=== PATIENT | female | born 1940 | race Caucasian/White ===

== ENCOUNTER → 2016-08-03 | Outpatient (CLI) | payer OTHER, MEDICARE | LOC: FIMAGING 08:51 | PROVIDERS: ATTEND Physician Assistant | DX: Z12.39 Encounter for other screening for malignant neoplasm of breast (principal); R92.0 Mammographic microcalcification found on diagnostic imaging of breast | CPT/HCPCS: G0206 ==

== ENCOUNTER 2016-11-01 09:48 | Emergency (ER) | payer OTHER, MEDICARE ==
[2016-11-01 10:03] VITALS: TEMP 98.2
--- NOTE | 2016-11-01 10:32 | EDPHY ---
H & P Time Seen by Provider: 11/01/16 10:16 HPI/ROS: HPI: Ms. Zhou is a 76 yrs, female who presents with Chief Complaint: Left lower leg swelling Location: Left anterior lower leg Quality: Swelling Duration: 5 and half weeks Signs and Symptoms: Positive calf pain, no shortness of breath, no chest pain, no redness, no warmth, no bleeding, no radiation Timing: Intermittent Severity: Moderate Context: Complex medical history with a history of right lower leg DVT years ago from a complication from angiogram procedure. No longer taking anticoagulation. Does take full-strength aspirin daily. Patient relates approximately 5-1/2 weeks ago was [place] in her luggage tripped and hit her left lower adams. Experienced a skin tear and large hematoma. She was seen at the local urgent care office with the tib-fib and foot x-ray that was negative for acute process per patient. Patient notes that the skin tear is healed but the large bump remains and there is seems to be swelling that has worsened over the last week. Patient did travel to [place] last week. Modifying Factors: Pain medication she has at home with moderate relief Comment: ROS: Eyes: No blurred vision Respiratory: No shortness of breath, no cough Cardiovascular: No chest pain Gastrointestinal: No nausea, no vomiting no diarrhea Genitourinary: No dysuria Extremities: No myalgias Neurologic: No weakness, no numbness Skin: No rashes Hematologic: No bruising, no bleeding MEDICAL/SURGICAL HISTORY: Pyelonephritis, chronic kidney disease, hyponatremia, chronic pain, dyslipidemia , hypertension, paroxysmal atrial fibrillation, irritable bowel syndrome. Social History: Retired. Smoking Status: Never smoked Physical Exam: CONSTITUTIONAL: Pleasant elderly white female, platelet talkative, awake and alert, no obvious distress HEENT: Atraumatic and normocephalic, PERRL, EOMI. Tympanic membranes clear. Oropharynx clear, no exudate and moist pink mucosa. Airway patent. No lymphadenopathy. No meningismus. Cardiovascular: Normal S1/S2, regular rate, regular rhythm, without murmur rub or gallop. PULMONARY/CHEST: Symmetrical and nontender. Clear to auscultation bilaterally Good air movement. No accessory muscle usage. ABDOMEN: Soft, nondistended, nontender, no rebound, no guarding, no peritoneal signs, no masses or organomegaly. No CVAT. EXTREMITIES: 2/2 pulses, no deformities, no clubbing, no cyanosis or edema. Left lower leg; anterior portion mid tib-fib shows 2-3 inch hyperpigmented hematoma. Mild swelling with calf tenderness on the left. Positive Homans sign. Left ankle has full range of motion. Left toes have lightheaded sensation intact. NEUROLOGICAL: no focal neuro deficits. GCS 15. SKIN: Warm and dry, see above. no rash. Good capillary refill. Constitutional: Initial Vital Signs Temperature (C) 36.8 C 11/01/16 09:59 Heart Rate 86 11/01/16 09:59 Respiratory Rate 18 11/01/16 09:59 Blood Pressure 186/105 H 11/01/16 09:59 O2 Sat (%) 96 11/01/16 09:59 O2 Delivery Mode Room Air Allergies/Adverse Reactions: meperidine HCl [From Demerol] Allergy (Severe, Verified 09/04/15 05:52) NAUSEA morphine Allergy (Severe, Verified 09/04/15 05:52) Hypotension prednisone [Prednisone] Allergy (Severe, Verified 09/04/15 05:52) Rash rofecoxib [From Vioxx] Allergy (Severe, Verified 09/04/15 05:52) SWELLING aloe vera Allergy (Verified 09/04/15 05:52) NSAIDS (Non-Steroidal Anti-Inflamma [Nsaids] Allergy (Verified 09/04/15 05:52) Rash Sulfa (Sulfonamide Antibiotics) Allergy (Verified 09/04/15 05:52) SWELLING Home Medications: Medication Instructions Recorded Acet/Caffeine/Buta Fioricet 0.5 tab PO TID 04/05/14 [Fioricet (*)] Acyclovir [Zovirax 200 mg (*)] 200 mg PO BID 04/05/14 Aspirin [Aspirin 325 mg (*)] 325 mg PO DAILY 04/05/14 Beta-Carotene(A) W-C & E/Min 1 tab PO DAILY 04/05/14 [Ocuvite] Calcium Carbonate [Oyster Shell 500 mg PO HS 04/05/14 Calcium 500 mg (*)] Cetirizine [ZyrTEC 10 mg (*)] 10 mg PO DAILY PRN 04/05/14 Cholecalciferol (Vitamin D3) 1,000 unit PO DAILY 04/05/14 [Vitamin D3] Esomeprazole Mag Trihydrate 40 mg PO HS PRN 04/05/14 [Nexium] Estrogens,Conjugated [Premarin 0.3 0.3 mg PO DAILY 04/05/14 MG (*)] Fenofibrate [Tricor 145 mg (*)] 145 mg PO DAILY 04/05/14 Foradil 1 puffs IH DAILY 04/05/14 Furosemide [Lasix 20 MG (*)] 20 mg PO DAILY 04/05/14 Gabapentin [Neurontin 100 MG (*)] 100 mg PO HS 04/05/14 Herbals/Supplements -Info Only 1 ea PO DAILY 04/05/14 Hydrocodone/Acetaminophen [[place] 0.5 tab PO Q6 PRN 04/05/14 5/325 (*)] Levothyroxine [Synthroid 75 mcg 75 mcg PO DAILY06 04/05/14 (*)] Losartan Potassium [Cozaar 25 mg 25 mg PO DAILY 04/05/14 (*)] Multivitamins [Multivitamin (*)] 1 tab PO DAILY 04/05/14 [place]-3 Fatty Acids [Fish Oil 1000 1,000 mg PO DAILY 04/05/14 mg (*)] Polyethylene Glycol 3350 [Miralax 17 gm PO DAILY 04/05/14 17 gm (*)] Promethazine HCl [Phenergan 25mg 25 mg PO DAILY PRN 04/05/14 (*)] Diltiazem HCl [Cardizem LA] 120 mg PO HS 04/07/14 Ondansetron Odt [Zofran Odt 4 mg 8 mg PO Q4-6PRN PRN #60 tab 04/07/14 (*)] Promethazine HCl [Phenergan 12.5mg 12.5 mg PO Q6 PRN #10 tablet 09/04/15 tab] Medical Decision Making - Diagnostics Imaging Results: Imaging Impressions Extremity Venous Study 11/01/16 10:24 Impression: 1. There is no sonographic evidence of deep or superficial vein thrombosis in the left lower extremity. 2. There is a 4.2 cm probable hematoma over the deep subcutaneous tissues of the left adams where the patient sustained prior trauma. ED Course/Re-evaluation: Left lower extremity Doppler ultrasound ordered to evaluate for DVT No signs of cellulitis/neurovascular compromise Ultrasound does not show any superficial or deep DVT. Does show approximately 4.2 cm superficial hematoma. Advised supportive care Differential Diagnosis: Differential diagnosis includes but not limited to DVT, contusion, hematoma, infection, claudication. Departure - Departure Referrals: Abdiaziz Kimble MD [Primary Care Provider] - As per Instructions
[2016-11-01 12:23] VITALS: BP 156/89; PULSE 83; RESP 16; O2SAT 98
== END 2016-11-01 12:23 | disposition home or self-care (01) ==
DX: S80.12XA Contusion of left lower leg, initial encounter (principal); I10 Essential (primary) hypertension; Z79.82 Long term (current) use of aspirin; W22.8XXA Striking against or struck by other objects, initial encounter

== ENCOUNTER → 2017-02-21 | Outpatient (CLI) | payer OTHER, MEDICARE | LOC: FIMAGING 09:27 | PROVIDERS: ATTEND Physician Assistant | DX: R92.8 Other abnormal and inconclusive findings on diagnostic imaging of breast (principal) | CPT/HCPCS: G0204 ==

== ENCOUNTER → 2017-08-24 | Outpatient (CLI) | payer OTHER, MEDICARE | LOC: BHFA 11:30 | PROVIDERS: ATTEND Internal Medicine Cardiovascular Disease | DX: R00.0 Tachycardia, unspecified (principal); I48.0 Paroxysmal atrial fibrillation ==

== ENCOUNTER → 2017-09-06 | Outpatient (CLI) | payer OTHER, MEDICARE | LOC: BHFA 14:00 | PROVIDERS: ATTEND Internal Medicine Cardiovascular Disease | DX: I48.91 Unspecified atrial fibrillation (principal); R06.02 Shortness of breath ==

== ENCOUNTER → 2017-09-14 | Outpatient (CLI) | payer OTHER, MEDICARE | LOC: BHFA 14:45 | PROVIDERS: ATTEND Nurse Practitioner Adult Health | DX: I48.91 Unspecified atrial fibrillation (principal); I10 Essential (primary) hypertension; I34.0 Nonrheumatic mitral (valve) insufficiency ==

== ENCOUNTER → 2018-04-06 | Outpatient (CLI) | payer OTHER, MEDICARE | LOC: FIMAGING 09:25 | PROVIDERS: ATTEND Physician Assistant | DX: Z12.31 Encounter for screening mammogram for malignant neoplasm of breast (principal) ==